=== PATIENT | male | born 1975 | race Caucasian/White ===

== ENCOUNTER 2019-07-10 07:33 | Observation (INO) ==
[2019-07-10] MEDS ORDERED: NS 1,000 ML IV ONE (08:18)
[2019-07-10] MEDS ORDERED: ZOFRAN IV ONE (08:18)
[2019-07-10] MEDS ORDERED: ZOSYN 4.5 GM in NS 100 ML IV ONE (08:18)
[2019-07-10] MEDS: BENTYL IM ONE ×2 (08:18→09:26)
[2019-07-10] MEDS ORDERED: TORADOL IV ONE (08:18)
[2019-07-10 08:23] LABS: BASO# 0.01 X1000 (0.0-0.2); BASO% 0.1 % (0.0-0.8); EOS# 0.02 X1000 (0.0-0.7); EOS% 0.1 % (0.0-10.0); HEMATOCRIT 43.8 % (42.0-52.0); HEMOGLOBIN 15.2 g/dL (14.0-18.0); IMM GRAN# 0.02 X1000 (0.0-0.04); IMM GRAN% 0.1 % (0.0-0.5); LYMPH# 1.07 X1000 (1.2-3.4); LYMPH% 7.7 % (20.5-51.1); MCH 27.7 PG (27-31); MCHC 34.7 g/dL (33-37); MCV 79.8 FL (81-99); MONO# 0.75 X1000 (0.11-0.59); MONO% 5.4 % (1.7-9.3); MPV 10.4 FL (7.4-10.4); NEUT# 12.06 X1000 (1.4-6.5); NEUT% 86.6 % (42.2-75.2); PLT 231 X1000 (130-400); RBC 5.49 XMIL (4.7-6.1); RDW 13.6 % (11.5-14.5); WBC 13.93 X1000 (4.8-10.8)
[2019-07-10 08:31] LABS: URINE SOURCE CLEAN CATCH
[2019-07-10 08:35] LABS: AGAP 16; ALB/GLOB RATIO 1.6; ALBUMIN 4.6 g/dL (3.5-5.0); ALKALINE PHOSPHATASE 50 U/L (32-122); AMYLASE 45 U/L (20-200); BUN 12 mg/dL (8-22); CALCIUM 9.5 mg/dL (8.8-10.2); CHLORIDE 98 mmol/L (98-107); COSMO 273; CREATININE 0.9 mg/dL (0.7-1.2); ESTIMATED GFR > 60; GLUCOSE 129 mg/dL (70-104); GOT 22 U/L (10-34); GPT 25 U/L (10-44); LIPASE 24 U/L (13-60); POTASSIUM 3.6 mmol/L (3.5-5.1); SODIUM 136 mmol/L (136-145); TCO2 22 mmol/L (25-35); TOTAL PROTEIN 7.5 g/dL (6.3-8.3)
[2019-07-10 08:37] LABS: BILIRUBIN URINE NEGATIVE (NEGATIVE); BLOOD URINE SMALL (NEGATIVE); COLOR YELLOW; GLUCOSE URINE NEGATIVE (NEGATIVE); KETONE URINE 40 mg/dL (NEGATIVE); LEUKOCYTES URINE NEGATIVE (NEGATIVE); NITRITE URINE NEGATIVE (NEGATIVE); PROTEIN URINE 30 mg/dL (NEGATIVE); SP GRAVITY URINE 1.026; TURBIDITY URINE CLEAR (CLEAR); UR EPITHELIAL CELLS <10 /HPF (<10); URINE BACTERIA NEGATIVE /HPF; URINE RBC <10 /HPF (<10); URINE WBC <10 /HPF (<10); UROBILINOGEN URINE NORMAL (NORMAL)
--- NOTE | 2019-07-10 09:29 | Diag Imaging Result Doc PS360 ---
EXAM: CT ABD/PELVIS W/IV CONT ONLY 07/10/2019 HISTORY: diverticulitis with perforation TECHNIQUE: This exam was performed using automated exposure control, adjustment of mA or kV according to patient size, and/or use of iterative reconstruction technique. COMMENT: There is a calcified granuloma in the posterior right lower lobe. There is no evidence of acute disease in the visualized portion of the chest and no previous studies are available for comparison. There are no apparent gallstones. The liver spleen adrenal glands and pancreas are within normal limits. The kidneys are without evidence of hydronephrosis mass or stones. There is no evidence of bowel obstruction. Pelvis: The appendix is normal in appearance. There is fairly severe diverticulitis in the anterior sigmoid colon. There is some free fluid in the rectovesical pouch. No discrete abscess is present. There is no evidence of gas in the urinary bladder. There are no acute bony abnormalities present. IMPRESSION: Sigmoid diverticulitis without evidence of abscess. Electronically signed by Brandin Jean 07/10/2019 9:27 AM
--- NOTE | 2019-07-10 10:29 | PROVIDER DOCUMENTATION ---
This chart was entered by Fina Patino Scribe, acting as scribe for Daryl Barraza MD. HPI-Abdominal Pain/GI Problem - General Chief Complaint: Abdominal Pain Stated Complaint: ABD PAIN Time Seen by Provider: 07/10/19 08:09 Source: patient Allergies/Adverse Reactions: Patient Allergies Allergy/AdvReac Type Severity Reaction Status Date / Time No Known Allergies Allergy Verified 05/29/18 10:58 Home Medications: Home Medication List Medication Instructions Recorded Confirmed Last Taken Type NK [No Home Medications] 07/10/19 07/10/19 Unknown History - History of Present Illness-ABD Nature of Presenting Problems: Patient is a 44 year old male who presents with generalized lower abdominal pain. States abdominal pain radiates to sacrum. Reports being diagnosed with diverticulitis and diverticulosis 2 weeks ago and was placed on Cipro and Flagyl. Denies nausea, vomiting and blood in stool. Abdominal Pain Onset Location: reports: other (generalized lower) Pain Radiation: reports: other (sacrum) Quality of Pain: reports: aching Severity in ED: reports: mild Onset/Duration: reports: gradual Timing: reports: still present Activities at Onset: reports: light activity Modifying Factors: worse with: coughing, defecating, movement, palpation, urinating Associated Symptoms: reports: fever/chills Bruising or Bleeding Gums?: No Similar Symptoms Previously?: Yes Recently seen or treated by another doctor?: Yes Review of Systems - Adult - REVIEW OF SYSTEMS - ADULT Constitutional: reports: see HPI, chills, fever. denies: fatique Eyes: reports: no symptoms reported Ears, Nose, Mouth & Throat: reports: no symptoms reported Cardiovascular: reports: no symptoms reported Respiratory: reports: no symptoms reported Gastrointestinal: reports: see HPI, abdominal pain (generalized lower). denies: diarrhea, nausea, rectal bleeding, vomiting Genitourinary: reports: no symptoms reported Musculoskeletal: reports: no symptoms reported Integumentary: reports: no symptoms reported Neurological: reports: no symptoms reported Psychiatric: reports: no symptoms reported Endocrine: reports: no symptoms reported Hematologic/Lymphatic: reports: no symptoms reported Allergic/Immunologic: reports: no symptoms reported All Other Systems: Reviewed and Negative Past History - Adult - PAST MEDICAL HISTORY-ADULT Review of Records: reports: Old Records Reviewed, Nursing Assessment Review, Medications Reviewed, Social history reviewed & non-contributory. Major Childhood Illnesses: reports: denies history Cardiovascular: reports: denies history Respiratory: reports: denies history Gastrointestinal: reports: diverticulosis, other (diverticulitis) Obstetrical/Gynecological: reports: denies history Genitourinary: reports: denies history Musculoskeletal: reports: denies history Neurological: reports: denies history Endocrine/Immune: reports: denies history Other Conditions: reports: denies history - PRIOR SURGERIES/PROCEDURES Surgical/Procedure History: reports: orthopedic (extremity) (right knee) - IMMUNIZATION STATUS Childhood Immunizations: See Nurse Assessment Flu Vaccine: See Nurse Assessment - FAMILY HISTORY Family History: reviewed, not pertinent - SOCIAL HISTORY Smoking: denies Substance Use: alcohol Alcohol Use Frequency: occasionally Physical Exam-General - PHYSICAL EXAM-ADULT Initial Vital Signs Reviewed: Yes - CONSTITUTIONAL General Appearance: alert, no apparent distress. negative: lethargic - HEAD, EARS, NOSE, MOUTH & THROAT HENMT: normocephalic/atraumatic, moist mucous membranes. negative: angioedema - RESPIRATORY Respiratory: chest non-tender, lungs clear, normal breath sounds. negative: crackles, stridor, increased rate - CARDIOVASCULAR Cardiovascular: normal peripheral pulses, regular rate, rhythm. negative: tachycardia - GASTROINTESTINAL (ABDOMEN) Abdominal Exam: normal bowel sounds, soft, guarding (LLQ), rebound (LLQ), tenderness (RLQ, LLQ and suprapubic. worse in LLQ). negative: distended - MUSCULOSKELETAL Extremity: normal inspection. negative: erythema, swelling - SKIN Integumentary: normal color, normal turgor, warm/dry. negative: diaphoresis, jaundice, rash - NEUROLOGIC Neurologic: grossly normal. negative: aphasia, facial droop - PSYCHIATRIC Psych/Mental Status: normal mood/affect, oriented x 3. negative: anxious Progress - PLAN OF CARE/RESULTS Progress/Plan/Lab Results: Vital Signs - 8 hr 07/10/19 07:41 07/10/19 08:28 07/10/19 08:29 Temperature 98.3 F Pulse Rate 105 H Respiratory Rate 18 Blood Pressure 112/76 122/74 O2 Sat by Pulse Oximetry 96 98 07/10/19 08:30 07/10/19 08:45 07/10/19 09:19 Temperature Pulse Rate 89 Respiratory Rate 17 Blood Pressure 121/80 O2 Sat by Pulse Oximetry 98 98 98 Laboratory Results - last 24 hr 07/10/19 07/10/19 07/10/19 07:50 07:50 07:50 WBC 13.93 H RBC 5.49 Hgb 15.2 Hct 43.8 MCV 79.8 L MCH 27.7 MCHC 34.7 RDW Std Deviation 13.6 Plt Count 231 MPV 10.4 Immature Gran % (Auto) 0.1 Neut % (Auto) 86.6 H Lymph % (Auto) 7.7 L [place] % (Auto) 5.4 Eos % (Auto) 0.1 Baso % (Auto) 0.1 Immature Gran # (Auto) 0.02 Neut # (Auto) 12.06 H Lymph # (Auto) 1.07 L [place] # (Auto) 0.75 H Eos # (Auto) 0.02 Baso # (Auto) 0.01 Sodium 136 Potassium 3.6 Chloride 98 Carbon Dioxide 22 L Anion Gap 16 BUN 12 Creatinine 0.9 Estimated GFR/1.73 m2 > 60 BUN/Creatinine Ratio 13 Glucose 129 H Calculated Osmolality 273 Calcium 9.5 Total Bilirubin 0.80 AST 22 ALT 25 Alkaline Phosphatase 50 Total Protein 7.5 Albumin 4.6 Globulin 2.9 Albumin/Globulin Ratio 1.6 Amylase 45 Lipase 24 Plasma Lactate 0.9 Urine Source Urine Color Urine Turbidity Urine pH Ur Specific [place] Urine Protein Ur Glucose (Stick) Ur Ketones (Stick) Urine Blood Urine Nitrite Urine Bilirubin Urobilinogen Dipstick Urine Leukocytes Urine WBC (Auto) Urine RBC (Auto) U Epithel Cells (Auto) Urine Bacteria (Auto) 07/10/19 08:19 WBC RBC Hgb Hct MCV MCH MCHC RDW Std Deviation Plt Count MPV Immature Gran % (Auto) Neut % (Auto) Lymph % (Auto) [place] % (Auto) Eos % (Auto) Baso % (Auto) Immature Gran # (Auto) Neut # (Auto) Lymph # (Auto) [place] # (Auto) Eos # (Auto) Baso # (Auto) Sodium Potassium Chloride Carbon Dioxide Anion Gap BUN Creatinine Estimated GFR/1.73 m2 BUN/Creatinine Ratio Glucose Calculated Osmolality Calcium Total Bilirubin AST ALT Alkaline Phosphatase Total Protein Albumin Globulin Albumin/Globulin Ratio Amylase Lipase Plasma Lactate Urine Source CLEAN CATCH Urine Color YELLOW Urine Turbidity CLEAR Urine pH 6.0 Ur Specific [place] 1.026 Urine Protein 30 A Ur Glucose (Stick) NEGATIVE Ur Ketones (Stick) 40 A Urine Blood SMALL A Urine Nitrite NEGATIVE Urine Bilirubin NEGATIVE Urobilinogen Dipstick NORMAL Urine Leukocytes NEGATIVE Urine WBC (Auto) <10 Urine RBC (Auto) <10 U Epithel Cells (Auto) <10 Urine Bacteria (Auto) NEGATIVE Orders Category Date Time Status Saline Loc DIRECTED Care 07/10/19 07:49 Active NPO Diet 07/10/19 07:[address] ABD/PELVIS W/IV CONT ONLY [CT] Stat Exams 07/10/19 08:17 Completed AMYLASE [CHEM] Stat Lab 07/10/19 07:50 Completed BLOOD CULTURE [BLDCUL] Stat Lab 07/10/19 08:35 Results CBC WITH ELECTRONIC DIFF [HEME] Stat Lab 07/10/19 07:50 Completed COMPREHENSIVE METABOLIC PANEL [CHEM] Stat Lab 07/10/19 07:50 Completed LACTATE, PLASMA [CHEM] Stat Lab 07/10/19 07:50 Completed LIPASE [CHEM] Stat Lab 07/10/19 07:50 Completed URINALYSIS W/POSS RFLX CULT [URINALYSIS] Stat Lab 07/10/19 08:19 Completed 0.9% Sodium Chloride Inj [Ns] 1,000 ml Med 07/10/19 08:18 Discontinued IV 999 mls/hr Dicyclomine [Bentyl] Med 07/10/19 08:18 Discontinued 20 mg IM NOW ONE Ketorolac [Toradol] Med 07/10/19 08:18 Discontinued 15 mg IV NOW ONE Ondansetron [Zofran] Med 07/10/19 08:18 Discontinued 4 mg IV NOW ONE Piperacillin/Tazobactam [Zosyn] 4.5 gm Med 07/10/19 08:18 Discontinued 0.9% Sodium Chloride Inj [Ns] 100 ml IV NOW Result Diagrams: 07/10/19 07:50 07/10/19 07:50 - REASSESSMENT Reassessment #1 Time Reassessed: 10:27 Status: improving (Given IVF bolus, zosyn and pain meds. Failed outpatient therapy. Will ask hsopitalist to admit for IV abx till improved clinically.) - CT/MRI 1 CT Study: Abdomen, Pelvis Impression: See EMR Report ( EXAM: CT ABD/PELVIS W/IV CONT ONLY 07/10/2019 HISTORY: diverticulitis with perforation TECHNIQUE: This exam was performed using automated exposure control, adjustment of mA or kV according to patient size, and/or use of iterative reconstruction technique. COMMENT: There is a calcified granuloma in the posterior right lower lobe. There is no evidence of acute disease in the visualized portion of the chest and no previous studies are available for comparison. There are no apparent gallstones. The liver spleen adrenal glands and pancreas are within normal limits. The kidneys are without evidence of hydronephrosis mass or stones. There is no evidence of bowel obstruction. Pelvis: The appendix is normal in appearance. There is fairly severe diverticulitis in the anterior sigmoid colon. There is some free fluid in the rectovesical pouch. No discrete abscess is present. There is no evidence of gas in the urinary bladder. There are no acute bony abnormalities present. IMPRESSION: Sigmoid diverticulitis without evidence of abscess. Electronically signed by Brandin Jean 07/10/2019 9:27 AM 07/10/19926 Interpreting Physician: Brandin Jean MD Dictated Date/Time: 07/10/19923 cc: Daryl Barraza MD; Sukhdeep Williamson DO) - CONSULTS/PCP/HOSPITALIST Notification #1 *Consult/PCP/Hospitalist*: ZEKE Barney for Hospitalist Time Discussed: 10:24 Reason/Comments: Dr. Barraza consulted with Savita about patient. Consult Disposition: Will see in ED, Admit Departure - Departure Date of Disposition Decision: 07/10/19 Time of Disposition Decision: 10:25 DIAGNOSIS: Diverticulitis large intestine w/o perforation or abscess w/o bleeding, Failure of outpatient treatment Disposition: ADMITTED INPATIENT 09 Certified Medical Emergency: Emergent Condition: Stable Referrals and Follow-Ups: Sukhdeep Williamson DO [Primary Care Provider] - - Critical Care Note This patient required my direct & personal management of CC.: No Attestation - Physician/ CLAIRE Attestation Patient care was provided by Advanced Practice Provider:: No The physician spent face to face time with patient:: Yes Advanced Practice Provider documentation review:: Supervising physician onsite and consulted in the evaluation and care of this patient. The physician did have a face to face encounter with the patient. This chart was documented by the indicated scribe, (Fina Patino Scribe) and accurately reflects the services I performed and decisions made by , Daryl Barraza MD, as attested by the provider's signature.
[2019-07-10] MEDS ORDERED: ZOFRAN IV PRN (11:20)
[2019-07-10] MEDS ORDERED: TORADOL IV PRN (11:21)
--- NOTE | 2019-07-10 12:35 | HISTORY AND PHYSICAL ---
PRIMARY CARE PHYSICIAN: Dr. Williamson. CHIEF COMPLAINT: Left lower quadrant suprapubic pain. HISTORY OF PRESENT ILLNESS: This is a 44-year-old gentleman who presents to the emergency room complaining of suprapubic and left lower quadrant pain that radiates back straight through to his sacrum. He states that he was diagnosed with diverticulitis on 05/03/2019, given Cipro and Flagyl by his primary care physician. He does state that he took the prescriptions. He states that the pain got a little better after taking the antibiotics, although it did not subside. Over the last few days, the pain has increased. He describes this pain as an aching-type pain. It is aggravated by movement and after eating. It does subside somewhat with lying still and taking Motrin. He did complain of some burning with urination over the last 24 hours. He denied any constipation, diarrhea, black or bloody vomitus or stools. PAST MEDICAL HISTORY: Diverticulitis diagnosed on 05/03/2019. PAST SURGICAL HISTORY: Denies. SOCIAL HISTORY: He drinks alcohol socially. He does use smokeless tobacco. He denies any illicit drug use. ALLERGIES: No known drug allergies. HOME MEDICATIONS: None. REVIEW OF SYSTEMS: Discussed with the patient, with pertinent positives stated in the HPI. He denied any syncope, dizziness, chest pain, palpitations, shortness of breath, cough, any nausea, vomiting, diarrhea, constipation, black or bloody vomitus or stools, any hematuria, dysuria, frequency, urgency. PHYSICAL EXAMINATION: GENERAL: This is a 44-year-old gentleman who is lying on the stretcher in no distress. VITAL SIGNS: Blood pressure is 121/80, with heart rate of 89, respirations are 17, temperature is 98.3 degrees oral, with room air saturations 98%. HEENT: Head is normocephalic, atraumatic. Mucous membranes are moist. NECK: Supple with trachea midline. CARDIOVASCULAR: Regular rate and rhythm. S1 and S2 appreciated. EXTREMITIES: He has no lower extremity edema. Calves are nontender bilaterally with peripheral pulses palpable x4 extremities. PULMONARY: Breath sounds are clear with no increased work of breathing noted. GASTROINTESTINAL: Abdomen is soft, tender to palpation (left lower quadrant suprapubic), nondistended, with bowel sounds in all 4 quadrants. GENITOURINARY: No CVA. NEUROLOGIC: He is alert and oriented x3. SKIN: Warm and dry. IMAGING AND LABORATORY DATA: WBC is 13.9 with hemoglobin 15.2, hematocrit 43.8, platelets of 231,000. Sodium 136, potassium 3.6, BUN 12, creatinine 0.9, with a glucose of 129. Urinalysis reveals a small amount of blood, positive for protein and ketones. Blood cultures are pending. CT of the abdomen and pelvis revealed sigmoid diverticulitis without evidence of abscess. ASSESSMENT AND PLAN: 1. Diverticulitis. Failed outpatient treatment. The patient will remain nothing by mouth. Will give Zosyn for antibiotic coverage, and monitor. If pain does not improve or he develops a fever or white count increases, will consult Gastroenterology. 2. Abdominal pain. The patient does not want narcotics at this time. Toradol relieved him in the emergency room. Will give Toradol every 6 hours, and monitor. 3. Leukocytosis secondary to #1, as stated. 4. Possible urinary tract infection. Will order a urine culture. 5. For deep venous thrombosis prophylaxis, will use sequential compression devices and ambulation. 6. For gastrointestinal prophylaxis, Prilosec. Further treatments pending hospital course. Plan was discussed with Dr Diggs Dictated by ZEKE Mathur for Cesar Diggs MD cc: ZEKE Mathur MD [facility]
[2019-07-10] MEDS: NS 1,000 ML IV SCH ×3 (13:00→20:15)
[2019-07-10] MEDS: ZOSYN 3.375 GM in NS 50 ML IV SCH ×2 (13:36→20:15)
--- NOTE | 2019-07-10 14:11 | HISTORY AND PHYSICAL ---
ADDENDUM: Patient seen and examined by myself. Full note dictated and discussed with nurse practitioner. The patient presented to the hospital with increased abdominal pain and nausea. Denies any blood in his emesis or stool. Notes that he had an outpatient CT, which demonstrated diverticulitis. The pain was too severe, so therefore he came to the hospital. Currently, the patient is awake, alert. He is in no respiratory distress. He is in pain in his abdomen when examined. We are going to admit him to the hospital, treat him for diverticulitis, and will follow. cc: Cesar Diggs MD
[2019-07-11] MEDS: ZOSYN 3.375 GM in NS 50 ML IV SCH ×4 (01:54→21:45)
[2019-07-11] MEDS: NS 1,000 ML IV SCH ×3 (01:54→21:46)
[2019-07-11] MEDS: PRILOSEC PO SCH (06:43)
[2019-07-11 06:57] LABS: BASO# 0.03 X1000 (0.0-0.2); BASO% 0.5 % (0.0-0.8); EOS# 0.12 X1000 (0.0-0.7); EOS% 1.9 % (0.0-10.0); HEMATOCRIT 40.5 % (42.0-52.0); HEMOGLOBIN 13.8 g/dL (14.0-18.0); LYMPH# 1.43 X1000 (1.2-3.4); LYMPH% 22.2 % (20.5-51.1); MCH 27.9 PG (27-31); MCHC 34.1 g/dL (33-37); MONO# 0.61 X1000 (0.11-0.59); MONO% 9.5 % (1.7-9.3); MPV 10.4 FL (7.4-10.4); NEUT# 4.25 X1000 (1.4-6.5); NEUT% 65.9 % (42.2-75.2); PLT 171 X1000 (130-400); RBC 4.94 XMIL (4.7-6.1); RDW 13.6 % (11.5-14.5); WBC 6.44 X1000 (4.8-10.8)
[2019-07-11 07:26] LABS: AGAP 16; ALB/GLOB RATIO 1.3; ALBUMIN 3.5 g/dL (3.5-5.0); ALKALINE PHOSPHATASE 38 U/L (32-122); BUN 11 mg/dL (8-22); CALCIUM 8.6 mg/dL (8.8-10.2); CHLORIDE 103 mmol/L (98-107); COSMO 280; CREATININE 0.9 mg/dL (0.7-1.2); ESTIMATED GFR > 60; GLUCOSE 83 mg/dL (70-104); GOT 17 U/L (10-34); GPT 18 U/L (10-44); POTASSIUM 3.5 mmol/L (3.5-5.1); SODIUM 141 mmol/L (136-145); TCO2 22 mmol/L (25-35); TOTAL BILIRUBIN 0.57 mg/dL (0.20-1.00); TOTAL PROTEIN 6.2 g/dL (6.3-8.3)
[2019-07-11] MEDS: CULTURELLE PO SCH ×2 (11:27→21:45)
--- NOTE | 2019-07-11 19:41 | PROGRESS NOTE ---
DATE: 07/11/199 SUBJECTIVE: The patient states that he feels a lot better today. He does have some mild tenderness in the left lower quadrant. He is afebrile and was able to tolerate some Sprite this morning. OBJECTIVE: Vital Signs: Temperature 98.1 degrees, blood pressure 124/77, heart rate 74, respirations 18, O2 saturation is 99% on room air. General: This is a middle-aged male sitting up in bed in no acute distress. Heart: S1, S2 normal. Regular rate and rhythm. Lungs: Equal breath sounds bilaterally. No wheezing. No rales. Abdomen: Positive bowel sounds. Soft, nontender, nondistended. Extremities: No edema. No cyanosis. Neurologic: The patient is alert and oriented x4. LABORATORY DATA: Sodium 141, potassium 3.5, chloride 103, CO2 of 22, BUN 11, creatinine 0.9, glucose 83. Hemoglobin 13, hematocrit 40. ASSESSMENT AND PLAN: 1. Acute sigmoid diverticulitis. Slowly improving. The patient's white blood cell count is normal. We will continue on Zosyn and start the patient on a clear liquid diet today. We will advance as tolerated. We will also place the patient on lactobacillus since he is receiving antibiotic therapy. 2. Deep vein thrombosis prophylaxis. Start the patient on Lovenox. cc: Lois Rosa MD
[2019-07-11] MEDS: LOVENOX SUBQ SCH (23:21)
[2019-07-12] MEDS: ZOSYN 3.375 GM in NS 50 ML IV SCH ×4 (02:52→22:00)
[2019-07-12] MEDS: NS 1,000 ML IV SCH ×2 (05:36→10:23)
[2019-07-12] MEDS: PRILOSEC PO SCH (06:08)
[2019-07-12 06:52] LABS: BASO# 0.02 X1000 (0.0-0.2); BASO% 0.4 % (0.0-0.8); EOS# 0.19 X1000 (0.0-0.7); EOS% 3.8 % (0.0-10.0); HEMATOCRIT 40.7 % (42.0-52.0); HEMOGLOBIN 14.1 g/dL (14.0-18.0); LYMPH# 1.48 X1000 (1.2-3.4); MCH 27.9 PG (27-31); MCHC 34.6 g/dL (33-37); MCV 80.6 FL (81-99); MONO# 0.41 X1000 (0.11-0.59); MONO% 8.3 % (1.7-9.3); MPV 10.5 FL (7.4-10.4); NEUT# 2.84 X1000 (1.4-6.5); NEUT% 57.5 % (42.2-75.2); PLT 207 X1000 (130-400); RBC 5.05 XMIL (4.7-6.1); RDW 13.5 % (11.5-14.5); WBC 4.94 X1000 (4.8-10.8)
[2019-07-12 07:13] LABS: AGAP 11; BUN 7 mg/dL (8-22); CALCIUM 8.7 mg/dL (8.8-10.2); CHLORIDE 104 mmol/L (98-107); COSMO 275; CREATININE 0.9 mg/dL (0.7-1.2); ESTIMATED GFR > 60; GLUCOSE 93 mg/dL (70-104); POTASSIUM 3.8 mmol/L (3.5-5.1); SODIUM 139 mmol/L (136-145); TCO2 24 mmol/L (25-35)
[2019-07-12] MEDS: CULTURELLE PO SCH ×2 (10:23→21:14)
[2019-07-12] MEDS ORDERED: FLU VACCINE IM ONE (16:02)
--- NOTE | 2019-07-12 20:30 | PROGRESS NOTE ---
DATE: 07/12/2019 SUBJECTIVE: The patient states that he feels a lot better. He tolerated his full liquid diet this morning. OBJECTIVE: Vital Signs: Temperature 98.7 degrees, blood pressure 110/67, heart rate 63, respirations 18, O2 saturations 100% on room air. General: This is a middle-aged male lying in bed in no acute distress. Heart: S1, S2 normal. Regular rate and rhythm. Lungs: Clear to auscultation bilaterally. Abdomen: Positive bowel sounds. Soft. Mild left lower quadrant tenderness. Extremities: No edema. No cyanosis. Neurologic: The patient is alert and oriented x4. LABS: Reviewed and within normal limits. ASSESSMENT AND PLAN: 1. Acute sigmoid diverticulitis. Improved. The patient's white blood cell count is normal. He is tolerating a full liquid diet. We will advance the patient to a gastrointestinal soft diet. Continue on Zosyn. We will plan to transition the patient to oral antibiotic therapy tomorrow and discharge home. 2. Deep vein thrombosis prophylaxis. Continue on Lovenox. cc: Lois Rosa MD
[2019-07-12] MEDS: LOVENOX SUBQ SCH (21:14)
[2019-07-13] MEDS: ZOSYN 3.375 GM in NS 50 ML IV SCH (06:07)
[2019-07-13] MEDS: PRILOSEC PO SCH (06:07)
[2019-07-13] MEDS: CULTURELLE PO SCH (08:45)
[2019-07-13 08:56] LABS: BASO# 0.03 X1000 (0.0-0.2); BASO% 0.6 % (0.0-0.8); EOS# 0.12 X1000 (0.0-0.7); EOS% 2.4 % (0.0-10.0); HEMATOCRIT 42.3 % (42.0-52.0); HEMOGLOBIN 14.6 g/dL (14.0-18.0); LYMPH# 1.15 X1000 (1.2-3.4); LYMPH% 23.3 % (20.5-51.1); MCH 27.8 PG (27-31); MCHC 34.5 g/dL (33-37); MCV 80.6 FL (81-99); MONO# 0.35 X1000 (0.11-0.59); MONO% 7.1 % (1.7-9.3); MPV 10.3 FL (7.4-10.4); NEUT# 3.29 X1000 (1.4-6.5); NEUT% 66.6 % (42.2-75.2); PLT 237 X1000 (130-400); RBC 5.25 XMIL (4.7-6.1); RDW 13.5 % (11.5-14.5); WBC 4.94 X1000 (4.8-10.8)
[2019-07-13 09:22] LABS: AGAP 12; BUN 8 mg/dL (8-22); CALCIUM 9.1 mg/dL (8.8-10.2); CHLORIDE 103 mmol/L (98-107); COSMO 278; ESTIMATED GFR > 60; GLUCOSE 96 mg/dL (70-104); POTASSIUM 3.7 mmol/L (3.5-5.1); SODIUM 140 mmol/L (136-145); TCO2 25 mmol/L (25-35)
[2019-07-13 11:55] VITALS: BP 111/73
== END 2019-07-13 12:13 | disposition home or self-care (01) ==
LOC: ED 07:33 → 4N 11:42 → SUATTDRO 11:42 → INTOOBSV 11:42
PROVIDERS: ATTEND Internal Medicine